=== PATIENT | male | born 1970 | race Caucasian/White ===

== ENCOUNTER 2021-06-15 21:11 | Inpatient (IN) ==
[2021-06-15] MEDS ORDERED: 0.9 % Sodium Chloride 1,000 ML ONE (21:32)
[2021-06-15] MEDS ORDERED: Nitroglycerin 1,000 MCG/5 ML VIAL IV ONE (21:33)
[2021-06-15] MEDS ORDERED: ISOVUE-370 200 ML INFUS..BTL ONE (21:33)
[2021-06-15] MEDS ORDERED: *HR* Heparin 10,000 UNIT/10 ML VIAL ONE (21:33)
[2021-06-15] MEDS ORDERED: Heparin 1,000 UNITS/500 mL 500 ML ONE (21:33)
[2021-06-15] MEDS ORDERED: *HR* FentaNYL (PF) 100 MCG/2 ML VIAL ONE (21:53)
[2021-06-15] MEDS ORDERED: *HR* Midazolam HCl 2 MG/2 ML VIAL ONE (21:53)
[2021-06-15] MEDS ORDERED: Furosemide 40 MG/4 ML VIAL ONE ×2 (23:07→23:17)
[2021-06-15] MEDS ORDERED: Furosemide 40 MG in 0.9 % Sodium Chloride 50 ML IV ONE (23:11)
[2021-06-15] MEDS ORDERED: Naloxone 0.4 MG/ML INJ IVP PRN (23:23)
[2021-06-15] MEDS ORDERED: Ondansetron 4 MG/2 ML VIAL IVP PRN (23:23)
[2021-06-15] MEDS ORDERED: Melatonin 3 MG TABLET PO PRN (23:23)
[2021-06-15] MEDS ORDERED: *HR* Heparin 5,000 UNIT/ML VIAL IVP PRN ×2 (23:26)
[2021-06-15 23:29] LABS: ABG Base Excess 0 mEq/L (-2 to 3); ABG HCO3 29 mEq/L (21-27); ABG Oxygen Saturation 100 % (95-98); ABG PCO2 60 mmHg (35-45); ABG PH 7.29 pH Units (7.32-7.45); ABG PO2 276 mmHg (85-104); ABG TCO2 31 mEq/L (20-26)
[2021-06-15] MEDS ORDERED: Furosemide 40 MG/4 ML VIAL IVP ONE (23:30)
[2021-06-15] MEDS ORDERED: Perflutren Lipid Microsphere 1.3 ML in 0.9 % Sodium Chloride 8.7 ML IVP PRN (23:30)
[2021-06-15] MEDS: Heparin 25,000UNIT/250ML 1/2NS 25,000 UNIT/250 ML IV.SOLN IVC SCH (23:36)
[2021-06-15] MEDS ORDERED: *HR* LORazepam 2 MG/ML VIAL IVP ONE (23:49)
[2021-06-15] MEDS ORDERED: *HR* LORazepam 2 MG/ML VIAL ONE (23:53)
[2021-06-16] MEDS ORDERED: Naloxone 0.4 MG/ML INJ IVP PRN (00:38)
[2021-06-16] MEDS ORDERED: Artificial Tears SOLN 15 ML BOTTLE BOTH EYES PRN ×2 (00:38→00:42)
[2021-06-16] MEDS ORDERED: *HR* Midazolam HCl 2 MG/2 ML VIAL IVP ONE (00:39)
[2021-06-16] MEDS ORDERED: *HR* Succinylcholine 200 MG/10 ML VIAL IVP ONE (00:39)
[2021-06-16] MEDS ORDERED: *HR* Midazolam HCl 5 MG/5 ML VIAL IVP ONE (00:39)
[2021-06-16] MEDS ORDERED: *HR* Etomidate 20 MG/10 ML AMPUL IVP ONE (00:39)
[2021-06-16] MEDS ORDERED: *HR* FentaNYL (PF) 100 MCG/2 ML VIAL ONE (00:51)
[2021-06-16] MEDS ORDERED: FentaNYL (PF) 1,000 MCG/100 ML IV.SOLN IVC ONE (01:00)
[2021-06-16 02:39] LABS: VBG Ionized Calcium 0.97 mmol/L (1.15-1.35)
[2021-06-16 02:44] LABS: Basophils % 0.2 %; Hematocrit 36.8 % (37.5-50.1); Hemoglobin 11.6 g/dL (12.9-16.9); Immature Granulocytes % 0.2 % (0-4); Lymphocytes # 0.4 K/mcL (0.6-4.6); Lymphocytes % 4.4 %; Mean Corpuscular HGB Conc 31.5 g/dL (31.6-35.5); Mean Corpuscular Hemoglobin 27.8 pg (28.0-33.3); Mean Platelet Volume 9.1 fL (9.4-12.4); Monocytes # 0.1 K/mcL (0.0-1.3); Neutrophils # 8.1 K/mcL (1.6-8.9); Platelet Count 238 K/mcL (140-400); Red Blood Count 4.18 M/mcL (4.19-5.50); Red Cell Distribution Width 13.3 % (11.5-14.5); Segmented Neutrophils % 94.2 %; White Blood Count 8.6 K/mcL (4.3-11.1)
[2021-06-16 02:56] LABS: Heparin anti-factor XA UFH < 0.04 IU/mL (0.30-0.70)
[2021-06-16 02:58] LABS: Activated Partial Thrombo Time 30.7 Seconds (26.0-36.0)
[2021-06-16 03:02] LABS: Adenovirus Not Detected (Not Detect); Bordetella Pertussis Not Detected (Not Detect); Chlamydophila pneumoniae Not Detected (Not Detect); Coronavirus 229E Not Detected (Not Detect); Coronavirus HKU1 Not Detected (Not Detect); Coronavirus NL63 Not Detected (Not Detect); Coronavirus OC43 Not Detected (Not Detect); Human Metapneumovirus Not Detected (Not Detect); Human Rhinovirus/Enterovirus Not Detected (Not Detect); Influenza A Subtype 2009 H1 Not Detected (Not Detect); Influenza B Not Detected (Not Detect); Mycoplasma pneumoniae Not Detected (Not Detect); Parainfluenza Virus 1 Not Detected (Not Detect); Parainfluenza Virus 2 Not Detected (Not Detect); Parainfluenza Virus 3 Not Detected (Not Detect); Parainfluenza Virus 4 Not Detected (Not Detect); Respiratory Syncytial Virus Not Detected (Not Detect); SARS-CoV-2 Not Detected (Not Detect)
[2021-06-16] MEDS: Artificial Tears SOLN 15 ML BOTTLE BOTH EYES SCH ×12 (03:58→23:36)
[2021-06-16 04:28] LABS: ABG Base Excess 4 mEq/L (-2 to 3); ABG HCO3 29 mEq/L (21-27); ABG Oxygen Saturation 95 % (95-98); ABG PCO2 43 mmHg (35-45); ABG PH 7.44 pH Units (7.32-7.45); ABG PO2 74 mmHg (85-104); ABG TCO2 30 mEq/L (20-26); Blood Gas Modality ASSIST CONTROL; Blood Gas VT 520 cc
[2021-06-16 04:51] LABS: INR 1.2; Prothrombin Time 13.4 Seconds (9.4-12.1)
[2021-06-16 05:04] LABS: Albumin 3.1 g/dL (3.5-5.7); Bilirubin,Total 0.6 mg/dL (0.3-1.0); Calcium 8.5 mg/dL (8.6-10.3); Chol/HDL Ratio 5.6 (0-4.9); Globulin 3.1 g/dL (2.4-3.5); Magnesium 1.9 mg/dL (1.6-2.6); Phosphorous 2.4 mg/dL (2.7-4.5); Potassium 4.2 mEq/L (3.5-5.1); Total Protein 6.2 g/dL (6.4-8.9); Troponin I 9.95 ng/mL (< 0.04)
[2021-06-16] MEDS: Calcium Gluconate 1gm/50mL 1 GM/50 ML BAG IVPB PRN (05:40)
[2021-06-16] MEDS: Chlorhexidine Rinse 15 ML MOUTHWASH MM SCH ×4 (07:39→20:18)
[2021-06-16] MEDS: Aspirin 81 MG TAB.CHEW PO SCH (07:39)
[2021-06-16] MEDS ORDERED: Furosemide 40 MG/4 ML VIAL IVP SCH (09:00)
[2021-06-16] MEDS: FentaNYL (PF) 1,000 MCG/100 ML IV.SOLN IVC SCH (09:28)
[2021-06-16] MEDS ORDERED: Perflutren Lipid Microsphere 1.3 ML in 0.9 % Sodium Chloride 8.7 ML IVP PRN (10:56)
[2021-06-16 13:17] LABS: Calcium 8.8 mg/dL (8.6-10.3); Magnesium 2.4 mg/dL (1.6-2.6); Phosphorous 5.6 mg/dL (2.7-4.5); Potassium 4.3 mEq/L (3.5-5.1)
[2021-06-16] MEDS: Dexmedetomidine HCl 400 MCG/100 ML MLS IVC SCH (13:36)
[2021-06-16 14:54] LABS: Hematocrit 37.6 % (37.5-50.1); Hemoglobin 12.2 g/dL (12.9-16.9)
[2021-06-16] MEDS: Pantoprazole 40 MG VIAL IVP SCH (17:34)
[2021-06-16 20:03] LABS: Basophils % 0.1 %; Hematocrit 36.8 % (37.5-50.1); Hemoglobin 11.9 g/dL (12.9-16.9); Immature Granulocytes % 0.7 % (0-4); Lymphocytes # 1.5 K/mcL (0.6-4.6); Lymphocytes % 8.8 %; Mean Corpuscular HGB Conc 32.3 g/dL (31.6-35.5); Mean Corpuscular Hemoglobin 27.6 pg (28.0-33.3); Mean Corpuscular Volume 85.4 fL (83.0-100.0); Monocytes # 1.4 K/mcL (0.0-1.3); Monocytes % 8.1 %; Neutrophils # 14.3 K/mcL (1.6-8.9); Platelet Count 247 K/mcL (140-400); Red Blood Count 4.31 M/mcL (4.19-5.50); Red Cell Distribution Width 13.4 % (11.5-14.5); Segmented Neutrophils % 82.3 %
[2021-06-16 20:04] LABS: White Blood Count 17.4 K/mcL (4.3-11.1)
[2021-06-16 20:18] LABS: Calcium 8.7 mg/dL (8.6-10.3); Potassium 3.9 mEq/L (3.5-5.1)
[2021-06-16] MEDS: *HR* HYDROcodone/Acet 5/325 mg TABLET PO PRN (20:46)
[2021-06-17 02:26] LABS: Hematocrit 35.3 % (37.5-50.1); Hemoglobin 11.3 g/dL (12.9-16.9)
[2021-06-17] MEDS: *HR* HYDROcodone/Acet 5/325 mg TABLET PO PRN ×4 (03:09→22:20)
[2021-06-17 04:37] LABS: VBG Ionized Calcium 1.03 mmol/L (1.15-1.35)
[2021-06-17 04:58] LABS: Basophils % 0.2 %; Eosinophils % 0.1 %; Hematocrit 34.2 % (37.5-50.1); Hemoglobin 11.1 g/dL (12.9-16.9); Immature Granulocytes % 0.4 % (0-4); Lymphocytes # 1.7 K/mcL (0.6-4.6); Lymphocytes % 12.7 %; Mean Corpuscular HGB Conc 32.5 g/dL (31.6-35.5); Mean Corpuscular Hemoglobin 28.4 pg (28.0-33.3); Mean Corpuscular Volume 87.5 fL (83.0-100.0); Mean Platelet Volume 9.4 fL (9.4-12.4); Monocytes # 1.2 K/mcL (0.0-1.3); Monocytes % 9.3 %; Neutrophils # 10.3 K/mcL (1.6-8.9); Platelet Count 230 K/mcL (140-400); Red Blood Count 3.91 M/mcL (4.19-5.50); Red Cell Distribution Width 13.7 % (11.5-14.5); Segmented Neutrophils % 77.3 %; White Blood Count 13.3 K/mcL (4.3-11.1)
[2021-06-17] MEDS: Calcium Gluconate 1gm/50mL 1 GM/50 ML BAG IVPB PRN (05:03)
[2021-06-17 05:21] LABS: Calcium 8.3 mg/dL (8.6-10.3); Magnesium 2.4 mg/dL (1.6-2.6); Phosphorous 5.4 mg/dL (2.7-4.5); Potassium 4.2 mEq/L (3.5-5.1)
[2021-06-17] MEDS: Artificial Tears SOLN 15 ML BOTTLE BOTH EYES SCH ×4 (06:31→07:58)
[2021-06-17] MEDS: Pantoprazole 40 MG VIAL IVP SCH ×2 (07:00→17:31)
[2021-06-17] MEDS: Heparin 25,000UNIT/250ML 1/2NS 25,000 UNIT/250 ML IV.SOLN IVC SCH ×3 (07:56→21:16)
[2021-06-17] MEDS: FentaNYL (PF) 1,000 MCG/100 ML IV.SOLN IVC SCH (07:57)
[2021-06-17] MEDS: Dexmedetomidine HCl 400 MCG/100 ML MLS IVC SCH (07:58)
[2021-06-17] MEDS: Chlorhexidine Rinse 15 ML MOUTHWASH MM SCH ×2 (07:59)
[2021-06-17] MEDS: Aspirin 81 MG TAB.CHEW PO SCH (07:59)
[2021-06-17 09:59] LABS: VBG Ionized Calcium 1.11 mmol/L (1.15-1.35)
[2021-06-17 10:01] LABS: Basophils % 0.2 %; Eosinophils % 0.1 %; Hematocrit 35.6 % (37.5-50.1); Hemoglobin 11.2 g/dL (12.9-16.9); Immature Granulocytes % 0.3 % (0-4); Lymphocytes # 1.4 K/mcL (0.6-4.6); Lymphocytes % 12.3 %; Mean Corpuscular HGB Conc 31.5 g/dL (31.6-35.5); Mean Corpuscular Hemoglobin 27.5 pg (28.0-33.3); Mean Corpuscular Volume 87.5 fL (83.0-100.0); Mean Platelet Volume 9.3 fL (9.4-12.4); Monocytes # 1.1 K/mcL (0.0-1.3); Monocytes % 9.5 %; Neutrophils # 9.1 K/mcL (1.6-8.9); Platelet Count 208 K/mcL (140-400); Red Blood Count 4.07 M/mcL (4.19-5.50); Red Cell Distribution Width 13.5 % (11.5-14.5); Segmented Neutrophils % 77.6 %; White Blood Count 11.8 K/mcL (4.3-11.1)
[2021-06-17] MEDS ORDERED: Naloxone 0.4 MG/ML INJ IVP PRN (12:19)
[2021-06-17] MEDS ORDERED: *HR* Heparin 5,000 UNIT/ML VIAL IVP PRN (12:19)
[2021-06-17] MEDS ORDERED: Perflutren Lipid Microsphere 1.3 ML in 0.9 % Sodium Chloride 8.7 ML IVP PRN (12:19)
[2021-06-17] MEDS ORDERED: Ondansetron 4 MG/2 ML VIAL IVP PRN (12:19)
[2021-06-17] MEDS ORDERED: Morphine Sulfate 2 MG/ML SYRINGE IVP ONE (12:21)
[2021-06-17] MEDS ORDERED: Nitroglycerin 1 INCH/GM PACKET TP ONE (12:22)
[2021-06-17] MEDS ORDERED: Levalbuterol Neb 1.25 MG/3 ML IH PRN (12:47)
[2021-06-17] MEDS ORDERED: Furosemide 40 MG/4 ML VIAL IVP ONE (13:01)
[2021-06-17] MEDS: *HR* Heparin 5,000 UNIT/ML VIAL IVP PRN (15:03)
[2021-06-17] MEDS: Melatonin 3 MG TABLET PO PRN (22:20)
[2021-06-18] MEDS: Pantoprazole 40 MG VIAL IVP SCH ×2 (05:10→16:21)
[2021-06-18] MEDS: *HR* HYDROcodone/Acet 5/325 mg TABLET PO PRN ×3 (05:10→18:36)
[2021-06-18 05:48] LABS: Basophils % 0.3 %; Eosinophils % 0.4 %; Hemoglobin 10.8 g/dL (12.9-16.9); Immature Granulocytes % 0.4 % (0-4); Lymphocytes # 1.2 K/mcL (0.6-4.6); Lymphocytes % 15.4 %; Mean Corpuscular HGB Conc 30.9 g/dL (31.6-35.5); Mean Corpuscular Hemoglobin 27.6 pg (28.0-33.3); Mean Corpuscular Volume 89.5 fL (83.0-100.0); Mean Platelet Volume 9.3 fL (9.4-12.4); Monocytes # 0.8 K/mcL (0.0-1.3); Monocytes % 9.7 %; Neutrophils # 5.8 K/mcL (1.6-8.9); Platelet Count 197 K/mcL (140-400); Red Blood Count 3.91 M/mcL (4.19-5.50); Red Cell Distribution Width 13.6 % (11.5-14.5); Segmented Neutrophils % 73.8 %; White Blood Count 7.8 K/mcL (4.3-11.1)
[2021-06-18 06:10] LABS: BUN/Creatinine Ratio 49 (6-26); Blood Urea Nitrogen 57 mg/dL (6-20); Calcium 8.5 mg/dL (8.6-10.3); Carbon Dioxide 32 mEq/L (23-29); Chloride 97 mEq/L (98-107); Glucose 122 mg/dL (70-105); Magnesium 2.5 mg/dL (1.6-2.6); Osmolality,Calculated 295 (280-300); Phosphorous 3.8 mg/dL (2.7-4.5); Sodium 134 mEq/L (136-145); eGFR For African Americans > 60 (> 60); eGFR For Non-African Americans > 60 (> 60)
[2021-06-18 06:20] LABS: VBG Ionized Calcium 1.03 mmol/L (1.15-1.35)
[2021-06-18] MEDS: Aspirin 81 MG TAB.CHEW PO SCH (08:17)
[2021-06-18] MEDS ORDERED: Furosemide 40 MG/4 ML VIAL IVP SCH (09:00)
[2021-06-18] MEDS: *HR* Heparin 5,000 UNIT/ML VIAL IVP PRN (10:08)
[2021-06-18] MEDS: Heparin 25,000UNIT/250ML 1/2NS 25,000 UNIT/250 ML IV.SOLN IVC SCH (11:15)
[2021-06-18] MEDS: Artificial Tears SOLN 15 ML BOTTLE BOTH EYES SCH (12:50)
[2021-06-18] MEDS ORDERED: *HR* Heparin 10,000 UNIT/10 ML VIAL ONE ×2 (14:10→15:05)
[2021-06-18] MEDS ORDERED: Heparin 1,000 UNITS/500 mL 500 ML ONE (14:10)
[2021-06-18] MEDS ORDERED: ISOVUE-370 200 ML INFUS..BTL ONE ×2 (14:10→15:19)
[2021-06-18] MEDS ORDERED: Nitroglycerin 1,000 MCG/5 ML VIAL IV ONE (14:10)
[2021-06-18] MEDS ORDERED: 0.9 % Sodium Chloride 1,000 ML ONE ×2 (14:10→14:11)
[2021-06-18] MEDS ORDERED: *HR* Midazolam HCl 2 MG/2 ML VIAL ONE ×2 (14:26→14:53)
[2021-06-18] MEDS ORDERED: *HR* FentaNYL (PF) 100 MCG/2 ML VIAL ONE ×2 (14:26→15:23)
[2021-06-18] MEDS ORDERED: Tirofiban 12.5 MG/250ML 12.5 MG/250 ML BAG ONE (15:37)
[2021-06-18] MEDS ORDERED: Morphine Sulfate 2 MG/ML SYRINGE IVP ONE (17:09)
[2021-06-18] MEDS ORDERED: Furosemide 40 MG/4 ML VIAL IVP ONE (17:10)
[2021-06-18] MEDS ORDERED: *HR* Labetalol 20 MG/4 ML SYRINGE IVP ONE (17:11)
[2021-06-18] MEDS: Melatonin 3 MG TABLET PO PRN (21:18)
[2021-06-19] MEDS: *HR* HYDROcodone/Acet 5/325 mg TABLET PO PRN ×4 (02:07→22:49)
[2021-06-19 04:24] LABS: Hematocrit 30.7 % (37.5-50.1); Hemoglobin 9.8 g/dL (12.9-16.9)
[2021-06-19 04:44] LABS: BUN/Creatinine Ratio 48 (6-26); Blood Urea Nitrogen 49 mg/dL (6-20); Calcium 8.2 mg/dL (8.6-10.3); Carbon Dioxide 34 mEq/L (23-29); Chloride 98 mEq/L (98-107); Glucose 119 mg/dL (70-105); Osmolality,Calculated 296 (280-300); Sodium 136 mEq/L (136-145); eGFR For African Americans > 60 (> 60); eGFR For Non-African Americans > 60 (> 60)
[2021-06-19] MEDS: Pantoprazole 40 MG VIAL IVP SCH ×2 (06:18→16:42)
[2021-06-19] MEDS: Aspirin 81 MG TAB.CHEW PO SCH (07:50)
[2021-06-19] MEDS: Sacubitril/Valsartan 24/26 MG 1 TABLET PO SCH ×2 (11:00→20:49)
[2021-06-19] MEDS: Furosemide 20 MG/2 ML VIAL IVP SCH ×2 (11:00→16:43)
[2021-06-19] MEDS ORDERED: Nicotine 21 MG PATCH.TD24 TD SCH (12:15)
[2021-06-19] MEDS ORDERED: carvediloL 6.25 MG TABLET PO SCH (17:00)
[2021-06-19] MEDS ORDERED: carvediloL 6.25 MG TABLET PO ONE (19:32)
[2021-06-19] MEDS: Melatonin 3 MG TABLET PO PRN (21:39)
[2021-06-20] MEDS: Pantoprazole 40 MG VIAL IVP SCH (05:22)
[2021-06-20 07:30] VITALS: BP 191/96; PULSE 95; TEMP 98.5; O2SAT 90
[2021-06-20] MEDS ORDERED: carvediloL 6.25 MG TABLET PO SCH (08:00)
[2021-06-20] MEDS: carvediloL 6.25 MG TABLET PO SCH ×2 (08:04→08:06)
[2021-06-20] MEDS: Sacubitril/Valsartan 24/26 MG 1 TABLET PO SCH (08:04)
[2021-06-20] MEDS: Aspirin 81 MG TAB.CHEW PO SCH (08:05)
[2021-06-20] MEDS: Furosemide 20 MG/2 ML VIAL IVP SCH (08:05)
[2021-06-20] MEDS ORDERED: Isosorbide MONOnitrate (24 HR) 30 MG TAB.ER.24H PO SCH (11:00)
[2021-06-20 12:16] LABS: Basophils % 0.3 %; Eosinophils # 0.2 K/mcL (0.0-0.6); Eosinophils % 1.9 %; Hematocrit 33.6 % (37.5-50.1); Hemoglobin 10.9 g/dL (12.9-16.9); Immature Granulocytes % 0.3 % (0-4); Lymphocytes # 1.5 K/mcL (0.6-4.6); Lymphocytes % 18.8 %; Mean Corpuscular HGB Conc 32.4 g/dL (31.6-35.5); Mean Corpuscular Hemoglobin 28.3 pg (28.0-33.3); Mean Corpuscular Volume 87.3 fL (83.0-100.0); Mean Platelet Volume 9.4 fL (9.4-12.4); Monocytes # 1.2 K/mcL (0.0-1.3); Monocytes % 15.1 %; Platelet Count 233 K/mcL (140-400); Red Blood Count 3.85 M/mcL (4.19-5.50); Red Cell Distribution Width 13.4 % (11.5-14.5); Segmented Neutrophils % 63.6 %; White Blood Count 7.8 K/mcL (4.3-11.1)
[2021-06-20 13:02] LABS: BUN/Creatinine Ratio 38 (6-26); Blood Urea Nitrogen 30 mg/dL (6-20); Calcium 8.6 mg/dL (8.6-10.3); Carbon Dioxide 26 mEq/L (23-29); Chloride 103 mEq/L (98-107); Glucose 106 mg/dL (70-105); Osmolality,Calculated 293 (280-300); Potassium 4.1 mEq/L (3.5-5.1); Sodium 138 mEq/L (136-145); eGFR For African Americans > 60 (> 60); eGFR For Non-African Americans > 60 (> 60)
[2021-06-20] MEDS ORDERED: carvediloL 6.25 MG TABLET PO ONE (18:57)
== END 2021-06-20 12:05 | disposition home or self-care (01) | DRG 175 ==
LOC: ICNU → 2NNU 22:55 → ICNU 06-16 00:39 → SUATTDRO 06-16 02:24 → 2NNU 06-18 12:02
PROVIDERS: ADMIT Internal Medicine Cardiovascular Disease; ATTEND Internal Medicine

== ENCOUNTER 2021-06-21 05:41 | Inpatient (IN) ==
[2021-06-21 05:55] LABS: ABG Base Excess 2 mEq/L (-2 to 3); ABG HCO3 35 mEq/L (21-27); ABG Oxygen Saturation 100 % (95-98); ABG PCO2 109 mmHg (35-45); ABG PH 7.11 pH Units (7.32-7.45); ABG PO2 247 mmHg (85-104); ABG TCO2 38 mEq/L (20-26)
[2021-06-21 06:10] LABS: Hematocrit 40.4 % (37.5-50.1); Hemoglobin 12.3 g/dL (12.9-16.9); Mean Corpuscular HGB Conc 30.4 g/dL (31.6-35.5); Mean Platelet Volume 9.3 fL (9.4-12.4); Platelet Count 350 K/mcL (140-400); Red Blood Count 4.39 M/mcL (4.19-5.50); Red Cell Distribution Width 13.3 % (11.5-14.5)
[2021-06-21 06:12] LABS: White Blood Count 17.6 K/mcL (4.3-11.1)
[2021-06-21 06:25] LABS: INR 1.2
[2021-06-21 06:27] LABS: Activated Partial Thrombo Time 26.6 Seconds (26.0-36.0)
[2021-06-21 06:35] LABS: Alanine Aminotransferase 61 Units/L (7-52); Albumin 3.6 g/dL (3.5-5.7); Alkaline Phosphatase 101 Units/L (34-104); Aspartate Amino Transferase 49 Units/L (13-39); BUN/Creatinine Ratio 34 (6-26); Bilirubin,Direct 0.3 mg/dL (0.0-0.2); Bilirubin,Indirect 0.5 mg/dL (0.0-1.0); Bilirubin,Total 0.8 mg/dL (0.3-1.0); Blood Urea Nitrogen 33 mg/dL (6-20); Calcium 8.8 mg/dL (8.6-10.3); Carbon Dioxide 33 mEq/L (23-29); Chloride 102 mEq/L (98-107); Globulin 3.7 g/dL (2.4-3.5); Glucose 242 mg/dL (70-105); Osmolality,Calculated 307 (280-300); Potassium 4.6 mEq/L (3.5-5.1); Sodium 141 mEq/L (136-145); Total Protein 7.3 g/dL (6.4-8.9); Troponin I 1.35 ng/mL (< 0.04); eGFR For African Americans > 60 (> 60); eGFR For Non-African Americans > 60 (> 60)
[2021-06-21 06:40] LABS: Eosinophils # 0.7 K/mcL (0.0-0.6); Lymphocytes # 3.9 K/mcL (0.6-4.6); Monocytes # 1.6 K/mcL (0.0-1.3); Neutrophils # 11.4 K/mcL (1.6-8.9); Platelet Estimate Normal (Normal); Reactive Lymphocytes Present (Not Present)
[2021-06-21 06:50] LABS: ABG Base Excess 5 mEq/L (-2 to 3); ABG HCO3 36 mEq/L (21-27); ABG Oxygen Saturation 100 % (95-98); ABG PCO2 90 mmHg (35-45); ABG PH 7.21 pH Units (7.32-7.45); ABG PO2 317 mmHg (85-104); ABG TCO2 39 mEq/L (20-26); Blood Gas VT 500 cc
[2021-06-21 06:52] LABS: Influenza A PCR Negative (Negative); Influenza B PCR Negative (Negative); Resp. Syncytial Virus PCR Negative (Negative); SARS-CoV-2 by PCR (In House) Negative (Negative)
[2021-06-21] MEDS ORDERED: *HR* Heparin 5,000 UNIT/ML VIAL IVP ONE (06:55)
[2021-06-21] MEDS ORDERED: *HR* Heparin 5,000 UNIT/ML VIAL IVP PRN (06:55)
[2021-06-21] MEDS ORDERED: Furosemide 40 MG/4 ML VIAL IVP ONE ×2 (06:59→20:37)
[2021-06-21] MEDS: Heparin 25,000UNIT/250ML 1/2NS 25,000 UNIT/250 ML IV.SOLN IVC SCH (07:47)
[2021-06-21] MEDS ORDERED: Naloxone 0.4 MG/ML INJ IVP PRN (08:36)
[2021-06-21] MEDS ORDERED: carvediloL 25 MG TABLET PO SCH (09:00)
[2021-06-21 09:26] LABS: Bilirubin,Urine Negative (Negative); Blood,Urine Large (Negative); Clarity,Urine Clear (Clear); Color,Urine Light-Yellow (Yellow); Glucose,Urine (UA) Normal (Normal); Ketones,Urine Negative (Negative); Leukocyte Esterase,Urine Negative (Negative); Mucus,Urine Few per lpf (None-Few); Nitrite,Urine Negative (Negative); Protein,Urine 70 mg/dL (Neg-Trace); Specific Gravity,Urine 1.013 (1.010-1.025); Squamous Epithelial Cell,Urine Few per hpf (None-Few); Urobilinogen,Urine Normal (Normal)
[2021-06-21 09:32] LABS: Amphetamine Screen,Urine Negative ng/mL (Cutoff=1000); Barbiturate Screen,Urine Negative ng/mL (Cutoff=200); Benzodiazepines Screen,Urine Negative ng/mL (Cutoff=300); Cannabinoid Screen,Urine Negative ng/mL (Cutoff = 50); Cocaine Screen,Urine Negative ng/mL (Cutoff= 300); Opiate Screen,Urine Positive ng/mL (Cutoff=300)
[2021-06-21 09:33] LABS: Phencyclidine Screen,Urine Negative ng/mL (Cutoff=25)
[2021-06-21] MEDS: Morphine Sulfate 2 MG/ML SYRINGE IVP PRN ×2 (10:15→20:25)
[2021-06-21] MEDS: Aspirin Enteric Coated 81 MG Tablet PO SCH (10:16)
[2021-06-21] MEDS: Vancomycin 2,000 MG/520 ML IV.SOLN IVPB SCH ×2 (10:19→21:21)
[2021-06-21] MEDS: *HR* HYDROcodone/Acet 5/325 mg TABLET PO PRN ×2 (14:12→21:24)
[2021-06-21] MEDS: Cefepime HCl 2,000 MG in 0.9 % Sodium Chloride Mini Bag 100 ML IVPB SCH (16:26)
[2021-06-21] MEDS: *HR* Heparin 5,000 UNIT/ML VIAL IVP PRN (18:37)
[2021-06-21] MEDS ORDERED: Furosemide 40 MG/4 ML VIAL ONE (20:05)
[2021-06-21] MEDS ORDERED: Morphine Sulfate 2 MG/ML SYRINGE IVP ONE (20:20)
[2021-06-22] MEDS: Cefepime HCl 2,000 MG in 0.9 % Sodium Chloride Mini Bag 100 ML IVPB SCH ×3 (00:08→17:07)
[2021-06-22 01:21] LABS: Basophils % 0.3 %; Eosinophils # 0.2 K/mcL (0.0-0.6); Eosinophils % 2.2 %; Hematocrit 30.4 % (37.5-50.1); Immature Granulocytes % 0.2 % (0-4); Lymphocytes # 1.5 K/mcL (0.6-4.6); Lymphocytes % 17.4 %; Mean Corpuscular HGB Conc 30.9 g/dL (31.6-35.5); Mean Corpuscular Hemoglobin 28.3 pg (28.0-33.3); Mean Corpuscular Volume 91.6 fL (83.0-100.0); Mean Platelet Volume 9.3 fL (9.4-12.4); Monocytes % 10.9 %; Platelet Count 187 K/mcL (140-400); Red Blood Count 3.32 M/mcL (4.19-5.50); Red Cell Distribution Width 13.5 % (11.5-14.5)
[2021-06-22 01:24] LABS: Hemoglobin 9.4 g/dL (12.9-16.9); White Blood Count 8.7 K/mcL (4.3-11.1)
[2021-06-22 01:42] LABS: BUN/Creatinine Ratio 32 (6-26); Blood Urea Nitrogen 37 mg/dL (6-20); Calcium 7.9 mg/dL (8.6-10.3); Carbon Dioxide 31 mEq/L (23-29); Chloride 107 mEq/L (98-107); Glucose 130 mg/dL (70-105); Magnesium 2.2 mg/dL (1.6-2.6); Osmolality,Calculated 296 (280-300); Phosphorous 4.7 mg/dL (2.7-4.5); Potassium 4.4 mEq/L (3.5-5.1); Sodium 138 mEq/L (136-145); eGFR For African Americans > 60 (> 60); eGFR For Non-African Americans > 60 (> 60)
[2021-06-22] MEDS: *HR* Heparin 5,000 UNIT/ML VIAL IVP PRN (01:56)
[2021-06-22 04:30] LABS: VBG Ionized Calcium 1.15 mmol/L (1.15-1.35)
[2021-06-22] MEDS: Heparin 25,000UNIT/250ML 1/2NS 25,000 UNIT/250 ML IV.SOLN IVC SCH ×2 (05:24→18:49)
[2021-06-22] MEDS: *HR* HYDROcodone/Acet 5/325 mg TABLET PO PRN ×3 (08:24→21:54)
[2021-06-22] MEDS: Aspirin Enteric Coated 81 MG Tablet PO SCH (08:24)
[2021-06-22] MEDS ORDERED: Furosemide 40 MG/4 ML VIAL IVP SCH (09:00)
[2021-06-22] MEDS: Furosemide 240 MG in 0.9 % Sodium Chloride 96 ML IVC SCH (09:45)
[2021-06-22] MEDS: carvediloL 6.25 MG TABLET PO SCH ×2 (09:46→17:07)
[2021-06-22] MEDS: Vancomycin 2,000 MG/520 ML IV.SOLN IVPB SCH ×3 (09:47→22:53)
[2021-06-22 10:04] LABS: BUN/Creatinine Ratio 45 (6-26); Blood Urea Nitrogen 40 mg/dL (6-20); Calcium 8.2 mg/dL (8.6-10.3); Carbon Dioxide 33 mEq/L (23-29); Chloride 103 mEq/L (98-107); Glucose 132 mg/dL (70-105); Osmolality,Calculated 302 (280-300); Potassium 4.4 mEq/L (3.5-5.1); Sodium 140 mEq/L (136-145); eGFR For African Americans > 60 (> 60); eGFR For Non-African Americans > 60 (> 60)
[2021-06-22 10:05] LABS: Magnesium 2.1 mg/dL (1.6-2.6); Phosphorous 3.4 mg/dL (2.7-4.5)
[2021-06-22] MEDS: Sacubitril/Valsartan 24/26 MG 1 TABLET PO SCH ×2 (14:40→19:52)
[2021-06-22 18:54] LABS: Calcium 8.5 mg/dL (8.6-10.3); Glucose 110 mg/dL (70-105); Vancomycin,Trough 23 mcg/mL (5-10)
[2021-06-22 18:55] LABS: Blood Urea Nitrogen 35 mg/dL (6-20); Carbon Dioxide 33 mEq/L (23-29); Chloride 101 mEq/L (98-107); Osmolality,Calculated 297 (280-300); Potassium 3.8 mEq/L (3.5-5.1); Sodium 139 mEq/L (136-145)
[2021-06-22 19:19] LABS: BUN/Creatinine Ratio 41 (6-26); eGFR For African Americans > 60 (> 60); eGFR For Non-African Americans > 60 (> 60)
[2021-06-22] MEDS: Acetaminophen 325 MG TABLET PO PRN (19:52)
[2021-06-22] MEDS: Melatonin 3 MG TABLET PO PRN (22:28)
[2021-06-23] MEDS: Cefepime HCl 2,000 MG in 0.9 % Sodium Chloride Mini Bag 100 ML IVPB SCH ×2 (00:53→09:02)
[2021-06-23] MEDS: Furosemide 240 MG in 0.9 % Sodium Chloride 96 ML IVC SCH (04:07)
[2021-06-23] MEDS: *HR* HYDROcodone/Acet 5/325 mg TABLET PO PRN ×4 (04:19→22:05)
[2021-06-23] MEDS ORDERED: Albuterol 2.5 MG/3 ML NEBULIZER IH PRN (04:42)
[2021-06-23] MEDS: Heparin 25,000UNIT/250ML 1/2NS 25,000 UNIT/250 ML IV.SOLN IVC SCH (05:38)
[2021-06-23 08:18] LABS: Basophils % 0.3 %; Eosinophils # 0.3 K/mcL (0.0-0.6); Eosinophils % 2.9 %; Hematocrit 27.3 % (37.5-50.1); Hemoglobin 8.7 g/dL (12.9-16.9); Immature Granulocytes % 0.5 % (0-4); Lymphocytes # 1.1 K/mcL (0.6-4.6); Lymphocytes % 10.6 %; Mean Corpuscular HGB Conc 31.9 g/dL (31.6-35.5); Mean Corpuscular Hemoglobin 28.2 pg (28.0-33.3); Mean Corpuscular Volume 88.6 fL (83.0-100.0); Mean Platelet Volume 9.5 fL (9.4-12.4); Monocytes # 1.1 K/mcL (0.0-1.3); Monocytes % 10.3 %; Platelet Count 191 K/mcL (140-400); Red Blood Count 3.08 M/mcL (4.19-5.50); Red Cell Distribution Width 13.4 % (11.5-14.5); Segmented Neutrophils % 75.4 %; White Blood Count 10.6 K/mcL (4.3-11.1)
[2021-06-23 08:20] LABS: VBG Ionized Calcium 1.06 mmol/L (1.15-1.35)
[2021-06-23 08:38] LABS: BUN/Creatinine Ratio 32 (6-26); Blood Urea Nitrogen 23 mg/dL (6-20); Calcium 8.1 mg/dL (8.6-10.3); Carbon Dioxide 32 mEq/L (23-29); Chloride 101 mEq/L (98-107); Glucose 122 mg/dL (70-105); Magnesium 1.7 mg/dL (1.6-2.6); Osmolality,Calculated 289 (280-300); Potassium 3.7 mEq/L (3.5-5.1); Sodium 137 mEq/L (136-145); eGFR For African Americans > 60 (> 60); eGFR For Non-African Americans > 60 (> 60)
[2021-06-23] MEDS: carvediloL 25 MG TABLET PO SCH ×2 (08:55→17:25)
[2021-06-23] MEDS: Sacubitril/Valsartan 24/26 MG 1 TABLET PO SCH (08:55)
[2021-06-23] MEDS: Aspirin Enteric Coated 81 MG Tablet PO SCH (08:55)
[2021-06-23] MEDS: Acetaminophen 325 MG TABLET PO PRN (09:01)
[2021-06-23] MEDS: Vancomycin 2,000 MG/520 ML IV.SOLN IVPB SCH (10:38)
[2021-06-23] MEDS: Calcium Gluconate 1gm/50mL 1 GM/50 ML BAG IVPB SCH ×2 (13:24→14:46)
[2021-06-23] MEDS: *HR* Heparin 5,000 UNIT/ML VIAL SQ SCH (17:25)
[2021-06-23] MEDS: Melatonin 3 MG TABLET PO PRN (22:05)
[2021-06-24] MEDS: *HR* HYDROcodone/Acet 5/325 mg TABLET PO PRN ×3 (04:37→20:06)
[2021-06-24] MEDS: Furosemide 240 MG in 0.9 % Sodium Chloride 96 ML IVC SCH ×2 (05:52→09:05)
[2021-06-24] MEDS: *HR* Heparin 5,000 UNIT/ML VIAL SQ SCH ×3 (06:19→20:06)
[2021-06-24] MEDS: carvediloL 25 MG TABLET PO SCH ×2 (08:35→18:03)
[2021-06-24] MEDS: Aspirin Enteric Coated 81 MG Tablet PO SCH (08:35)
[2021-06-24] MEDS ORDERED: Sacubitril/Valsartan 49/51 MG 1 TABLET PO SCH (10:00)
[2021-06-24] MEDS ORDERED: Acetaminophen 325 MG TABLET PO PRN (10:58)
[2021-06-24] MEDS ORDERED: Naloxone 0.4 MG/ML INJ IVP PRN (10:58)
[2021-06-24] MEDS ORDERED: Albuterol 2.5 MG/3 ML NEBULIZER IH PRN (10:58)
[2021-06-24] MEDS ORDERED: Melatonin 3 MG TABLET PO PRN (10:58)
[2021-06-24] MEDS ORDERED: Morphine Sulfate 2 MG/ML SYRINGE IVP PRN (10:58)
[2021-06-24 11:11] LABS: Basophils % 0.2 %; Eosinophils # 0.2 K/mcL (0.0-0.6); Eosinophils % 2.2 %; Hematocrit 29.3 % (37.5-50.1); Hemoglobin 9.2 g/dL (12.9-16.9); Immature Granulocytes % 0.4 % (0-4); Lymphocytes # 1.1 K/mcL (0.6-4.6); Lymphocytes % 13.1 %; Mean Corpuscular HGB Conc 31.4 g/dL (31.6-35.5); Mean Corpuscular Hemoglobin 27.8 pg (28.0-33.3); Mean Corpuscular Volume 88.5 fL (83.0-100.0); Mean Platelet Volume 9.3 fL (9.4-12.4); Monocytes # 0.6 K/mcL (0.0-1.3); Monocytes % 7.7 %; Neutrophils # 6.2 K/mcL (1.6-8.9); Platelet Count 183 K/mcL (140-400); Red Blood Count 3.31 M/mcL (4.19-5.50); Red Cell Distribution Width 13.5 % (11.5-14.5); Segmented Neutrophils % 76.4 %; White Blood Count 8.2 K/mcL (4.3-11.1)
[2021-06-24 11:31] LABS: BUN/Creatinine Ratio 27 (6-26); Blood Urea Nitrogen 20 mg/dL (6-20); Calcium 8.5 mg/dL (8.6-10.3); Carbon Dioxide 39 mEq/L (23-29); Chloride 97 mEq/L (98-107); Glucose 143 mg/dL (70-105); Magnesium 1.8 mg/dL (1.6-2.6); Osmolality,Calculated 291 (280-300); Phosphorous 2.2 mg/dL (2.7-4.5); Potassium 3.5 mEq/L (3.5-5.1); Sodium 138 mEq/L (136-145); eGFR For African Americans > 60 (> 60); eGFR For Non-African Americans > 60 (> 60)
[2021-06-24] MEDS: Furosemide 40 MG TABLET PO SCH (13:06)
[2021-06-24] MEDS ORDERED: Furosemide 40 MG/4 ML VIAL IVP ONE (17:00)
[2021-06-24] MEDS: Sacubitril/Valsartan 49/51 MG 1 TABLET PO SCH (20:05)
[2021-06-25] MEDS: *HR* HYDROcodone/Acet 5/325 mg TABLET PO PRN ×4 (02:09→22:51)
[2021-06-25 02:30] LABS: Basophils % 0.4 %; Eosinophils # 0.3 K/mcL (0.0-0.6); Eosinophils % 2.9 %; Hematocrit 31.4 % (37.5-50.1); Hemoglobin 9.6 g/dL (12.9-16.9); Immature Granulocytes % 0.4 % (0-4); Lymphocytes # 1.7 K/mcL (0.6-4.6); Mean Corpuscular HGB Conc 30.6 g/dL (31.6-35.5); Mean Corpuscular Hemoglobin 27.4 pg (28.0-33.3); Mean Corpuscular Volume 89.7 fL (83.0-100.0); Mean Platelet Volume 9.5 fL (9.4-12.4); Monocytes # 0.8 K/mcL (0.0-1.3); Monocytes % 9.6 %; Neutrophils # 5.7 K/mcL (1.6-8.9); Platelet Count 225 K/mcL (140-400); Red Cell Distribution Width 13.7 % (11.5-14.5); Segmented Neutrophils % 66.7 %; White Blood Count 8.5 K/mcL (4.3-11.1)
[2021-06-25 02:48] LABS: BUN/Creatinine Ratio 33 (6-26); Blood Urea Nitrogen 27 mg/dL (6-20); Calcium 8.8 mg/dL (8.6-10.3); Carbon Dioxide 33 mEq/L (23-29); Chloride 99 mEq/L (98-107); Glucose 99 mg/dL (70-105); Magnesium 1.9 mg/dL (1.6-2.6); Osmolality,Calculated 287 (280-300); Phosphorous 3.3 mg/dL (2.7-4.5); Potassium 3.4 mEq/L (3.5-5.1); Sodium 136 mEq/L (136-145); eGFR For African Americans > 60 (> 60); eGFR For Non-African Americans > 60 (> 60)
[2021-06-25] MEDS: *HR* Heparin 5,000 UNIT/ML VIAL SQ SCH ×3 (05:43→22:51)
[2021-06-25] MEDS ORDERED: Furosemide 40 MG/4 ML VIAL IVP ONE (08:54)
[2021-06-25] MEDS: Isosorbide MONOnitrate (24 HR) 30 MG TAB.ER.24H PO SCH (09:23)
[2021-06-25] MEDS: Sacubitril/Valsartan 49/51 MG 1 TABLET PO SCH ×2 (09:23→22:51)
[2021-06-25] MEDS: Furosemide 40 MG TABLET PO SCH (09:23)
[2021-06-25] MEDS: carvediloL 25 MG TABLET PO SCH ×2 (09:23→16:28)
[2021-06-25] MEDS: Aspirin Enteric Coated 81 MG Tablet PO SCH (09:23)
[2021-06-25] MEDS: Spironolactone 25 MG TABLET PO SCH (11:46)
[2021-06-25] MEDS: carvediloL 6.25 MG TABLET PO SCH (19:21)
[2021-06-26 04:48] LABS: Basophils % 0.4 %; Eosinophils # 0.3 K/mcL (0.0-0.6); Eosinophils % 3.3 %; Hemoglobin 8.6 g/dL (12.9-16.9); Immature Granulocytes % 0.4 % (0-4); Lymphocytes # 1.6 K/mcL (0.6-4.6); Lymphocytes % 21.4 %; Mean Corpuscular HGB Conc 30.7 g/dL (31.6-35.5); Mean Corpuscular Hemoglobin 27.3 pg (28.0-33.3); Mean Corpuscular Volume 88.9 fL (83.0-100.0); Mean Platelet Volume 9.5 fL (9.4-12.4); Monocytes # 0.7 K/mcL (0.0-1.3); Monocytes % 9.7 %; Platelet Count 204 K/mcL (140-400); Red Blood Count 3.15 M/mcL (4.19-5.50); Red Cell Distribution Width 13.8 % (11.5-14.5); Segmented Neutrophils % 64.8 %; White Blood Count 7.6 K/mcL (4.3-11.1)
[2021-06-26 05:02] LABS: BUN/Creatinine Ratio 43 (6-26); Blood Urea Nitrogen 30 mg/dL (6-20); Calcium 8.5 mg/dL (8.6-10.3); Carbon Dioxide 33 mEq/L (23-29); Chloride 101 mEq/L (98-107); Glucose 111 mg/dL (70-105); Osmolality,Calculated 295 (280-300); Phosphorous 3.4 mg/dL (2.7-4.5); Potassium 3.5 mEq/L (3.5-5.1); Sodium 139 mEq/L (136-145); eGFR For African Americans > 60 (> 60); eGFR For Non-African Americans > 60 (> 60)
[2021-06-26 05:19] LABS: ABG Base Excess 8 mEq/L (-2 to 3); ABG HCO3 33 mEq/L (21-27); ABG Oxygen Saturation 95 % (95-98); ABG PCO2 51 mmHg (35-45); ABG PH 7.43 pH Units (7.32-7.45); ABG PO2 74 mmHg (85-104); ABG TCO2 35 mEq/L (20-26)
[2021-06-26] MEDS: *HR* HYDROcodone/Acet 5/325 mg TABLET PO PRN ×2 (05:19→13:01)
[2021-06-26] MEDS: *HR* Heparin 5,000 UNIT/ML VIAL SQ SCH (05:20)
[2021-06-26] MEDS: Sacubitril/Valsartan 49/51 MG 1 TABLET PO SCH (09:38)
[2021-06-26] MEDS: Aspirin Enteric Coated 81 MG Tablet PO SCH (09:38)
[2021-06-26] MEDS: Furosemide 40 MG TABLET PO SCH (09:38)
[2021-06-26] MEDS: carvediloL 25 MG TABLET PO SCH (09:38)
[2021-06-26] MEDS: Spironolactone 25 MG TABLET PO SCH (09:39)
[2021-06-26] MEDS: Isosorbide MONOnitrate (24 HR) 30 MG TAB.ER.24H PO SCH (09:39)
[2021-06-26 11:17] VITALS: BP 120/57; PULSE 91; TEMP 97.8; O2SAT 92
== END 2021-06-26 15:03 | disposition home or self-care (01) | DRG 720 ==
LOC: EMEROOARM 05:41 → SUATTDRO 07:37 → ICNU 07:37 → 3ANU 06-24 12:29
PROVIDERS: ADMIT Pediatrics; ATTEND Internal Medicine